=== PATIENT | male | born 2000 | race Caucasian/White ===

== ENCOUNTER 2024-10-25 15:22 | Outpatient (REF) | payer OTHER, SELFPAY ==
--- NOTE | ~2024-10-25 | US_ITS ---
EXAMINATION: Ultrasound extremity nonvascular. CLINICAL INDICATION: Pain posterior right knee question mass. TECHNIQUE: Limited ultrasound imaging through the right popliteal fossa was performed. FINDINGS: There is a small hyperechoic area in the right posterior knee/popliteal fossa measuring 0.6 x 0.6 x 0.6 cm. There is no anechoic fluid seen. Imaging through the contralateral left knee reveals a small hyperechoic focus in the popliteal fossa and appears similar to the right side. 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 An x-ray of left knee (AP and lateral) can be obtained to rule out any loose body which can have a similar appearance. Electronically signed by: Viral Man MD 10/26/2024 09:05 AM RANJIT
--- OUTSIDE RECORDS SUMMARY | 2024-10-25 15:24 | XMS_ITS | Clinical Summary ---
Author Organization [facility] Address [address] [place] [address] Care Team Providers Care Principal Technical Writer Name Role Phone Tho March Primary Care Provider [phone] Allergies No known active allergies Medications * This document contains information received from the source organization and may not represent a complete record from that organization. No known medications Active Problems No known active problems Social History Tobacco Use Types Packs/Day Years Used Date Smoking Tobacco: Never Smokeless Tobacco: Never Alcohol Use Standard Drinks/Week Comments Not Asked 0 (1 standard drink = 0.6 oz pur e alcohol) Sex and Gender Information Value Date Recorded Sex Assigned at Not on file Legal Sex Male 7:18 PM EDT Gender Identity Not on file Sexual Orientation Not on file Last Filed Vital Signs Vital Sign Reading Time Taken Comments Blood Pressure 123/67 02/24/2018 8:05 PM EDT Pulse 44 02/24/2018 8:05 PM EDT Temperature 36.4 ??C (97.5 ??F) 02/24/2018 8:05 PM ED T Respiratory Rate 16 02/24/2018 8:05 PM EDT Oxygen Saturation 98% 12/14/2014 6:34 PM EDT Inhaled Oxygen Concentration - - Weight 79.4 kg (175 lb) 12/14/2014 6:34 PM EDT Height 175.3 cm (5' 9 ) 12/14/2014 6:34 PM EDT Body Mass Index 25.84 12/14/2014 6:34 PM EDT Plan of Treatment Health Maintenance Due Date Last Done Comments Hepatitis C Screening 1998 HPV Vaccine (1 - Male 3-dose series) 2013 DTaP/Tdap/Td (1 - Tdap) 2016 Hep B (1 of 3 - 19+ 3-dose series) 2017 COVID-19 Vaccine (2023-2 5 season) 2024 Influenza (#1) 2024 Zoster (Shingrix) (1 of 2) 2048 Hep A Aged Out No longer eligi ble based on patient's age to complete this topic Hib Aged Out No longer eligi ble based on patient's age to complete this topic Meningococcal ACWY Aged Out No longer eligible based on patient's age to complete this topic Pneumococcal Aged Out No longer eligi ble based on patient's age to complete this topic Insurance [employer] [facility] [place] [id number] * Guarantor: [facility] DPW Account Type Relation to Patient Date of Phone Billing Address Occup[employer] [employer] [address] [address] [place] [address] Care Teams Principal Technical Writer Relationship Specialty Start Date End Date Tho March [facility] [address] [place] [address] PCP - General Pediatrics 07/27/14
--- OUTSIDE RECORDS SUMMARY | 2024-10-25 15:24 | XMS_ITS | Referral Summary ---
Author Organization [facility] Address [address] [place] [address] Care Team Providers Care Gear Shaper Set Up Operator Name Role Phone Erik Blackmon MD Primary Care Provider [phone] Encounters Date Type Department Care Team Description 10/14/2024 Telephone [facility] [address] [place] [address] Telephone Intake, Staff PAC Referral Request-Regulo from Last 3 Months Allergies No known active allergies Medications albuterol (PROAIR HFA,VENTOLIN HFA) 90 mcg inhaler Inhale 2 puffs by mouth 4 times a day as needed. 08/02/2008 Active predniSONE (DELTASONE) 10 mg tabletIndication s:Poison dominguez 6 tabs a day for 2 days taper by 1 tab every other day until off 42 tablet 04/16/2018 Active Active Problems Problem Noted Date Diagnosed Date Chronic pain of left knee 12/19/2020 Overview (12/19/2020): 12/19/2020 called requesting a referral to [place] physical therapy for left knee pain referral given Acute midline low back pain without sciatica Overview (04/13/2019): 04/16/18 2 weeks of midline low back pain no specific trauma but work involve landscaping with heavy lifting no red flags no neurologic findings a little bit of point tenderness. Declined formal physical therapy 03/2018 LS spine w Obliques neg Assessment & Plan (04/16/2018 8:41 AM EDT): There are no red flags I suppose a pars defect is possible so I will get some x- rays I have recommended that he not lift more than 20 pounds from below the hip and no more than 40 pounds from the waist up in the next couple weeks He did not want a formal referral to physical therapy so I recommended the initiation of core exercises and crunches He may use [id number] Advil or Aleve which she has at home he did not want a actual prescription A call me if the back pain is not getting better or getting worse over the next few weeks Family history of colon cancer in mother 018 Overview (04/16/2018): Mother had colon cancer below age 50. Maternal aunt had breast in her 30s cancer and some other type of cancer. Assessment & Plan (04/16/2018 8:44 AM EDT): I asked the patient to ask his mother if she has had genetic testing for Peterson syndrome and to clarify whether this other relatives on that side of the family that have had colon or endometrial cancer Nupathe the patient will probably need a colonoscopy at least 5 years prior to his mother's diagnosis And less they have discordant genetic profiles. This means his first colonoscopy is probably an appendectomy at age 38 If mother had genetic testing is positive he will need to see clinical genetics [facility] care maintenance 04/16/2018 Overview (04/13/2019): TdAP due 02/2020 Needs fasting labs Assessment & Plan (04/16/2018 8:44 AM EDT): His vaccines are up-to-date I did offer to get a cholesterol panel and CBC on him but he really got nervous about that so we will get a hold off until next year's booster in 2019 Mild intermittent asthma without complication Overview (04/16/2018): Childhood diagnosis. March 2018 reported almost no use of inhaler Assessment & Plan (04/16/2018 8:41 AM EDT): No intervention at this time patient tells me is really not using his inhaler Resolved Problems Problem Noted Date Diagnosed Date Resolved Date Poison dominguez 04/16/2018 04/13/2019 Assessment & Plan (04/16/2018 8:42 AM EDT): Patient is got poison dominguez on his arms chest not really on the face it is moderately extensive just started yesterday I called him in prednisone which she has had in the past is no start with 60 mg for 2 days and then taper by 1 tablet every other day until off if he is not better in a few days to let me know Ankle Injury 06/02/2013 04/16/2018 Attention-deficit Hyperactivity Disorder 07/29/2009 04/13/2019 Immunizations Name Administration Dates Next Due Diphtheria, Tetanus Toxoids and Acellular Pertussis Vaccine 09/26/2002,10/09/1999,1998,07/12,1998 Haemophilus Influenzae Type B Vaccine, Conjugate Unspecified Formulation 07/23/1999,1998,1998,05/07 Hepatitis B Vaccine, Unspeci fied Formulation 1998,1998,1998 Human Papilloma Virus Vaccin e, Quadrivalent 04/24/2014,09/05/2013,05/17/2013 Measles, Mumps, and Rubella Vaccine 09/26/2002,1 1998 Meningococcal Polysaccharide (Groups A, C, Y and W-135) Diphtheria Toxoid Conjugate Vaccine (MCV4P) 04/24/2014,03/18/2010 Pneumococcal Conjugate Vacci ne, 7 Valent 07/10/2000 Poliovirus Vaccine, Inactivated 09/26/19,10/09/1999,1998,05/07 Tetanus Toxoid, Reduced Diph theria Toxoid, and Acellular Pertussis Vaccine, Adsorbed 03/18/2010 Tuberculin Skin Test; Purifi ed Protein Derivative Solution, Intradermal 09/26/2002 Varicella Virus Vaccine 07/23/1999 Social History Tobacco Use Types Packs/Day Years Used Date Smoking Tobacco: Never Smokeless Tobacco: Never Comments:: Alcohol Use Standard Drinks/Week Comments Yes 0 (1 standard drink = 0.6 oz pur e alcohol) rare Sex and Gender Information Value Date Recorded Sex Assigned at Male 10/14/2024 4:47 PM EST Legal Sex Male 6:37 AM EDT Gender Identity Choose not to disclose 2:17 PM EST Sexual Orientation Choose not to disclose 2024 2:17 PM EST Last Filed Vital Signs Vital Sign Reading Time Taken Comments Blood Pressure 109/67 04/16/2018 8:05 AM EDT Pulse 60 04/16/2018 8:05 AM EDT Temperature - - Respiratory Rate - - Oxygen Saturation - - Inhaled Oxygen Concentration - - Weight 81.2 kg (179 lb) 04/16/2018 8:05 AM EDT Height 174.5 cm (5' 8.7 ) 04/16/2018 8:05 AM EDT Body Mass Index 26.66 04/16/2018 8:05 AM EDT Plan of Treatment Upcoming Encounters Date Type Department Care Team (Late st Contact Info) Description 10/26/2024 10:30 AM EST Office Visit [facility] [address] [place] [address] Leno Rajput MD [address] [place] [address] [place] [address] [place] [address] [employer] Care Teams Gear Shaper Set Up Operator Relationship Specialty Start Date End Date Erik Blackmon MD [address] [place] [phone] PCP - General Internal Medicine 04/14/18
--- OUTSIDE RECORDS SUMMARY | 2024-10-25 15:24 | XMS_ITS | Encounter Summary ---
Author Organization [facility] Address [address] [place] [address] Care Team Providers Care Foster Care Case Manager Name Role Phone Erik Blackmon MD Primary Care Provider [phone] Reason for Visit * Reason Onset Date Comments PAC Referral Request-Bushilario 10/14/2024 Encounter Details Date Type Department Care Team (Late st Contact Info) Description 10/14/2024 Telephone [facility] [address] [place] [address] Telephone Intake, Staff PAC Referral Request-Busconi Social History Tobacco Use Types Packs/Day Years [...] not to disclose 2024 2:17 PM EST documented as of this encounter Miscellaneous Notes * Telephone Encounter - Demetrice Carlos - 10/19/2024 10:02 AM EST Spoke to patient. We are not able to order any imaging as he is a new patient to us. He understandsand is all set. * Telephone Encounter - Peggy Pang - 10/14/2024 4:50 PM EST Pt calling to see if provider could order further imaging ahead af appointment . He has an unofficial ultrasound ( is in medical field done with Body And Fender Mechanic Apprentice and Radiolgist,reviewed by MD) And it was found to be an avascular solid mass on r posterior knee unable to be fully appreciated on ultrasound, not fluid. If imaging can be ordered please send referral to [facility]. Any questions please [phone]. Thank you documented in this encounter Plan of Treatment Upcoming Encounters Date Type Department Care Team (Late st Contact Info) Description 10/26/2024 10:30 AM EST Office Visit [facility] [address] [place] [address] Leno Rajput MD [address] [place] [phone] documented as of this encounter Visit Diagnoses Not on filedocumented in this encounter Care Teams Foster Care Case Manager Relationship Specialty Start Date End Date Erik Blackmon MD [address] [place] [phone] PCP - General Internal Medicine 04/14/18 documented as of this encounter
--- OUTSIDE RECORDS SUMMARY | 2024-10-25 15:24 | XMS_ITS | Encounter Summary ---
Author Organization [facility] Address [address] [place] [address] Phone Care Team Providers Care Executive Sous Chef Name Role Phone Tho March MD Primary Care Provider [phone] Encounter Details Date Type Department Care Team (Late st Contact Info) Description 02/07/2018 Conversion Encounter Child [address] [phone] Dee Jackson NP [address] [place] [address] Social History Tobacco Use Types Packs/Day Years Used Date Smoking Tobacco: Never Assessed Sex and Gender Information Value Date Recorded Sex Assigned at Not on file Legal Sex Male 6:41 PM EDT Gender Identity Not on file Sexual Orientation Not on file documented as of this encounter Plan of Treatment Not on file documented as of this encounter Visit Diagnoses Not on filedocumented in this encounter Care Teams Executive Sous Chef Relationship Specialty Start Date End Date Tho March MD [address] [place] [address] PCP - General 01/27/18 04/07/19 documented as of this encounter
--- OUTSIDE RECORDS SUMMARY | 2024-10-25 15:24 | XMS_ITS | Clinical Summary ---
Author Organization [facility] Address [address] [place] [address] Phone Care Team Providers Care Client Support Representative Name Role Phone Unavailable Primary Care Provider Unavailabl e Immunizations Name Administration Dates Next Due DTaP 09/26/2002, 0,1998, 998,1998 HPV, Quadrivalent 04/24/2014,09/05/2013,05/17/20 13 Hep B 1998,1998,1998 HiB 07/23/1999, 9,1998, 998 IPV 09/26/2002, 0,1998, 998 Influenza 09/05/2013, 1,06/12/2010, 010,08/07/2008 MMR 09/26/2002,07/23/1999 Meningococcal Conj (Menactra) MCV4P 04/24/2014,0 03/18/2010 PPD Test 09/26/2002 Pneumococcal Conjugate 07/10/2000 Tdap 03/18/2010 Varicella 07/23/1999 Family History Relation Name Status Comments Other : No known fami ly history of cardiomyopathy or familial cardiac rhythm abnormalities such as WPW or prolonged QT syndrome. No family history of sudden cardiac or unexplained under age 55. Cancer, Type: High Blood Pressure Social History Tobacco Use Types Packs/Day Years Used Date Smoking Tobacco: Never Assessed Sex and Gender Information Value Date Recorded Sex Assigned at Not on file Legal Sex Male 6:41 PM EDT Gender Identity Not on file Sexual Orientation Not on file Last Filed Vital Signs Vital Sign Reading Time Taken Comments Blood Pressure 112/76 03/05/2016 11:59 AM EDT Pulse 70 03/05/2016 11:59 AM EDT Temperature 38.2 ??C (100.8 ??F) 12/15/2014 3:55 PM E DT Respiratory Rate - - Oxygen Saturation - - Inhaled Oxygen Concentration - - Weight 81.2 kg (178 lb 15.8 oz) 016 11:59 AM EDT Height 175.9 cm (5' 9.25 ) 03/05/2016 1 1:59 AM EDT Body Mass Index 26.24 03/05/2016 11:59 AM EDT Plan of Treatment Health Maintenance Due Date Last Done Comments Varicella Vaccines (2 of 2 - 2-dose childhood series) 10/24/2002 07/23/1999 DTaP,Tdap,and Td Vaccines (7 - Td or Tdap) 03/18/2020 03/18/2010, 09/26/2002, 10/09/1999, Additional history exists Influenza Vaccines (#1) 2024 09/05/20 13, 07/08/2011, 06/12/2010, Additional history exists COVID-19 Vaccine ( season) 2024 Hepatitis B Vaccines Completed 1998, 1998, 1998 HIB Vaccines Completed 07/23/1999, 11/1998, 1998, Additional history exists Pneumococcal Vaccine Completed 07/10/2000 IPV Vaccines Completed 09/26/2002, 09/21, 1998, Additional history exists MMR Vaccines Completed 09/26/2002, 07/23/1999 HPV Vaccines Completed 04/24/2014, 08/21, 05/17/2013 Meningococcal Vaccine Completed 04/24/2014, 010 Hepatitis A Vaccines Aged Out No long er eligible based on patient's age to complete this topic Men B Vaccine Aged Out No longer elig ible based on patient's age to complete this topic
--- OUTSIDE RECORDS SUMMARY | 2024-10-25 15:24 | XMS_ITS | Clinical Summary ---
Author Organization [facility] Address [address] [place] [address] Care Team Providers Care Candy Feeder Name Role Phone Erik Blackmon MD Primary Care Provider [phone] Allergies No known active allergies Medications albuterol [...] (12/19/2020): 12/19/2020 called requesting a referral to [place] physical therapy for left knee pain referral [...] core exercises and crunches He may use [id number] Advil or Aleve which she has at [...] he will need to see clinical genetics [facility] care maintenance 04/16/2018 Overview (04/13/2019): TdAP due [...] 06/02/2013 04/16/2018 Attention-deficit Hyperactivity Disorder 07/29/2009 04/13/2019 Encounters Date Type Department Care Team Description 10/14/2024 Telephone [facility] [address] [place] [address] Telephone Intake, Staff PAC Referral Request-Regulo from Last 3 Months Immunizations Name Administration Dates Next Due Diphtheria, [...] Pertussis Vaccine, Adsorbed 03/18/2010 Tuberculin Skin Test; Kayleigh ed Protein Derivative Solution, Intradermal 09/26/2002 Varicella Virus Vaccine 07/23/1999 Family History Medical History Relation Name Comments No Known Problems Brother Hypertension Father Colon cancer Mother Breast cancer Mother's Sister Relation Name Status Comments Brother Alive Father Alive Mother Alive Mother's Sister Alive Social History Tobacco Use Types Packs/Day Years [...] Description 10/26/2024 10:30 AM EST Office Visit [facility] [address] [place] [address] Leno Rajput MD [address] [place] [phone] Health Maintenance Due Date Last Done Comments HIV Screening 1998 Hepatitis C Screening 1998 Varicella Vaccines (2 of 2 - 2-dose childhood series) 2002 07/23/1999 Pneumococcal Vaccine: Pediat efrain (0-5 Years) and At-Risk Patients (6-64 Years) (2 of 2 - PPSV23 or PCV20) 2004 07/10/2000 DTaP,Tdap,and Td Vaccines (7 - Td or Tdap) 03/18/2020 03/18/2010, 09/26/2002, 10/09/1999, Additional history exists COVID-19 Vaccine ( - 2023-2 5 season) 2024 Influenza Vaccine (#1) 2024 Alcohol/Substance Use Screening 09/21/2024 Depression Screening and Follow-Up 09/21/2024 Social Drivers of Health Nallely ual Screening 09/21/2024 RSV Vaccine (60+ years old a nd patients) (1 - 1-dose 75+ series) 2073 Hepatitis B Vaccines Completed 1998, 1998, 1998 HPV Vaccines Completed 04/24/2014, 08/21, 05/17/2013 Insurance [employer] Care Teams Candy Feeder Relationship Specialty Start Date End Date Erik Blackmon MD [address] [place] [phone] PCP - General Internal Medicine 04/14/18
== END 2024-10-25 15:23 | disposition home or self-care (01) ==
LOC: HO.HMGCX 15:22
PROVIDERS: Visit Provider Family Medicine
DX: M25.561 Pain in right knee (principal)
CPT/HCPCS: 76882

== ENCOUNTER → 2024-10-25 15:26 | Outpatient (BNV) | payer OTHER, SELFPAY | PROVIDERS: Visit Provider Radiology Diagnostic Radiology | DX: M25.561 Pain in right knee (principal) | CPT/HCPCS: 76882 ==

== ENCOUNTER → 2024-10-27 11:35 | Outpatient (BNV) | payer OTHER, SELFPAY | PROVIDERS: Visit Provider Radiology Diagnostic Radiology | DX: M67.461 Ganglion, right knee (principal) | CPT/HCPCS: 73721 ==